=== PATIENT | male | born 1965 | race African-American/Black ===

== ENCOUNTER 2018-04-15 08:44 | Emergency (ER) | payer OTHER ==
[~2018-04-15] VITALS: Ht 144.8 cm; Wt 67.4 kg
[2018-04-15] MEDS ORDERED: LIDODERM 5% P1 PATCH TD (11:05)
[2018-04-15 11:38] VITALS: BP 105/73
== END 2018-04-15 11:38 | disposition home or self-care (01) ==
LOC: EME 08:44
PROC: 3E023BZ Introduction of Anesthetic Agent into Muscle, Percutaneous Approach (ICD-10-PCS; principal; 2018-04-15)
DX: M62.830 Muscle spasm of back (principal); M54.5 Low back pain; G89.29 Other chronic pain; Z79.891 Long term (current) use of opiate analgesic; F17.200 Nicotine dependence, unspecified, uncomplicated
CPT/HCPCS: 93005; 99281; 99283